=== PATIENT | female | born 1995 | race Two or more races ===

== ENCOUNTER 2022-12-24 04:40 | Emergency (ER) | payer MEDICAID ==
[~2022-12-24] VITALS: Ht 152.4 cm; Wt 76.9 kg
[2022-12-24 06:26] VITALS: BP 134/65; PULSE 88; RESP 16; TEMP 98.5; O2SAT 100
== END 2022-12-24 07:13 | disposition home or self-care (01) ==
LOC: ER 04:40
DX: G44.209 Tension-type headache, unspecified, not intractable (principal)
CPT/HCPCS: 70450